=== PATIENT | male | born 1965 | race African-American/Black ===

== ENCOUNTER 2020-08-18 17:53 | Emergency (ER) | payer OTHER ==
[~2020-08-18] VITALS: Ht 175.3 cm; Wt 79.0 kg
[2020-08-18 17:55] VITALS: BP 113/68
[2020-08-18] MEDS ORDERED: BACITRACIN ZINC OINT UDPKT TOP ONE (18:15)
[2020-08-18] MEDS ORDERED: LIDOCAINE HCL/EPINEPHRINE 1%-EPI 1:100,000 10 ML VIAL IJ ONE (18:15)
[2020-08-18] MEDS ORDERED: TETANUS, DIPHTHERIA, PERTUSSIS VAC/PF 0.5ML (>7YR OLD) IM ONE (18:15)
[2020-08-18] MEDS ORDERED: LIDOCAINE HCL 1% 20ML VIAL (Pyxis) INJ INFIL ONE (18:45)
[2020-08-18] MEDS ORDERED: IBUP-2029 MT (18:49)
[2020-08-18] MEDS ORDERED: SULF1TAB48 MT (18:49)
[2020-08-18] MEDS ORDERED: SULFAMETHOXAZOLE/TRIMETHOPRIM 800/160MG TABLET PO ONE (19:00)
== END 2020-08-18 19:31 | disposition home or self-care (01) ==
LOC: ER 17:53
DX: L02.416 Cutaneous abscess of left lower limb (principal)
CPT/HCPCS: 10060; 87070; 87077; 87186; 87205; 90471; 90715; 99283; A4217; J3490; Z7610

== ENCOUNTER 2021-05-19 10:42 | Emergency (ER) | payer MEDICAID, OTHER ==
[~2021-05-19] VITALS: Ht 175.3 cm; Wt 78.0 kg
[~2021-05-19 10:42] MED LIST: IBUP-2029 MT; SULF1TAB48 MT
[2021-05-19] MEDS ORDERED: PIPERACILLIN/TAZ 3.375G PREMIX 50 ML IV ONE (11:00)
[2021-05-19] MEDS ORDERED: SODIUM CHLORIDE 0.9% 1000ML BAG (SEPSIS BOLUS) IV ONE (11:00)
[2021-05-19] MEDS ORDERED: VANCOMYCIN 1G PREMIX 200 ML IV ONE (11:00)
[2021-05-19] MEDS ORDERED: KETOROLAC 30MG/ML VIAL IV ONE (11:15)
[2021-05-19 11:36] LABS: HEMATOCRIT. 44.3 % (42.0-52.0); HEMOGLOBIN. 15.1 g/dL (14.0-18.0); MEAN CORPUSCULAR HEMOGLOBIN 29.3 pg (28.0-32.0); MEAN CORPUSCULAR VOLUME 85.9 fL (80.0-94.0); MEAN PLATELET VOLUME 7.7 fl (7.4-10.4); PLATELET 245 x1000/uL (130-400); RED BLOOD CELL COUNT 5.16 mill/uL (4.7-6.1)
[2021-05-19 11:38] LABS: CHLORIDE 104 mEq/L (98-107)
[2021-05-19 11:42] LABS: PROTHROMBIN TIME 11.2 sec (9.6-11.0)
[2021-05-19] MEDS ORDERED: LIDOCAINE HCL 1% 20ML VIAL (Pyxis) INJ INFIL NR (12:00)
[2021-05-19] MEDS ORDERED: LIDOCAINE HCL/PF 1% 10 MG/ML 5ML VIAL INFIL ONE (12:00)
[2021-05-19 12:58] LABS: PLATELET ESTIMATE NORMAL
[2021-05-19 15:25] VITALS: BP 132/64
[2021-05-19] MEDS ORDERED: IBUP-2030 MT (15:46)
[2021-05-19] MEDS ORDERED: HYDR-4001 MT (15:46)
[2021-05-19] MEDS ORDERED: CEPH500T MT (15:46)
[2021-05-19] MEDS ORDERED: DOXY100C5 MT (15:46)
== END 2021-05-19 16:00 | disposition left against medical advice (07) ==
LOC: ER 10:42 → CANBEDREQ 20:42
DX: A41.9 Sepsis, unspecified organism (principal); L02.416 Cutaneous abscess of left lower limb; R65.21 Severe sepsis with septic shock; Z79.899 Other long term (current) drug therapy
CPT/HCPCS: 10060; 36415; 71045; 73562; 80048; 83605; 84145; 84550; 85025; 85610; 85651; 86140; 87040; 87070; 87077; 87186; 87205; 96361; 96365; 96367; 96375; 99291; J1885; J2543; J3370; J3490; J7030; L1830; Z7610

== ENCOUNTER 2021-09-28 06:03 | Emergency (ER) | payer OTHER ==
[~2021-09-28] VITALS: Ht 177.8 cm; Wt 78.7 kg
[~2021-09-28 06:03] MED LIST changes: +CEPH500T MT; +DOXY100C5 MT; +HYDR-4001 MT; +IBUP-2030 MT
[2021-09-28] MEDS ORDERED: KETOROLAC 15MG/ML VIAL IM ONE (08:30)
[2021-09-28] MEDS ORDERED: CYCLOBENZAPRINE 10MG TABLET PO ONE (08:30)
[2021-09-28 09:04] VITALS: BP 114/82
[2021-09-28] MEDS ORDERED: CYCL10TA21 MT (09:16)
[2021-09-28] MEDS ORDERED: NAPR-681 MT (09:16)
== END 2021-09-28 09:34 | disposition home or self-care (01) ==
LOC: ER 06:03
DX: M54.2 Cervicalgia (principal); M54.9 Dorsalgia, unspecified; V43.52XA Car driver injured in collision with other type car in traffic accident, initial encounter; Y93.89 Activity, other specified; Y92.410 Unspecified street and highway as the place of occurrence of the external cause
CPT/HCPCS: 96372; 99283; J1885

== ENCOUNTER 2022-09-10 16:37 | Emergency (ER) | payer OTHER ==
[~2022-09-10] VITALS: Ht 175.3 cm; Wt 78.6 kg
[~2022-09-10 16:37] MED LIST changes: +CYCL10TA21 MT; +NAPR-681 MT
[2022-09-10 16:45] VITALS: TEMP 97.9; O2SAT 99
[2022-09-10] MEDS ORDERED: KETOROLAC 30MG/ML VIAL IM ONE (19:30)
[2022-09-10 19:38] VITALS: BP 133/75; PULSE 74; RESP 16
[2022-09-10 19:51] LABS: BASOPHILS % 0.3 % (0.0-2.0); EOSINOPHILS % 0.9 % (0.0-5.0); HEMATOCRIT. 43.8 % (42.0-52.0); HEMOGLOBIN. 14.7 g/dL (14.0-18.0); LYMPHOCYTES % 20.2 % (20.0-50.0); MEAN CORPUSCULAR HEMOGLOBIN 29.3 pg (28.0-32.0); MEAN CORPUSCULAR VOLUME 87.3 fL (80.0-94.0); MEAN PLATELET VOLUME 7.9 fl (7.4-10.4); MONOCYTES % 9.9 % (2.0-8.0); NEUTROPHILS % 68.7 % (40.0-76.0); PLATELET 236 x1000/uL (130-400); RED BLOOD CELL COUNT 5.01 mill/uL (4.7-6.1)
[2022-09-10 19:59] LABS: CHLORIDE 108 mEq/L (98-107)
[2022-09-10 20:24] LABS: CLARITY URINE CLEAR (CLEAR); COLOR URINE YELLOW (YELLOW); KETONES URINE NEGATIVE (NEGATIVE); LEUKOCYTE ESTERASE URINE NEGATIVE (NEGATIVE); NITRITE URINE NEGATIVE (NEGATIVE); OCCULT BLOOD URINE NEGATIVE (NEGATIVE); PH URINE 5.5 (4.5-8.0); PROTEIN URINE NEGATIVE (NEGATIVE); SPECIFIC GRAVITY URINE 1.013 (1.005-1.030); UROBILINOGEN URINE 0.2 E.U./dL (0.2-1.0)
== END 2022-09-10 21:50 | disposition home or self-care (01) ==
LOC: ER 16:57
DX: M54.9 Dorsalgia, unspecified (principal)
CPT/HCPCS: 80053; 81003; 83690; 85025; 36415; 96372; 99283; J1885; Z7610